=== PATIENT | male | born 1965 | race Caucasian/White ===

== ENCOUNTER → 2018-05-04 | Outpatient (CLI) | payer OTHER ==
[~2018-05-04] VITALS: Ht 175.3 cm; Wt 88.5 kg
[~2018-05-04] MED LIST: ADVIL,NUPRIN,M200 MG PO; ALEVE220 MG PO; AZELASTINE137 MCG/0. BOTH NARES; FLONASE16 G1 BOTH NARES; PRILOSEC20 MG PO; SINGULAIR10 MG PO; XYZAL5 MG PO; ZOCOR40 MG PO
== END | disposition home or self-care (01) ==
LOC: AMB 09:24
PROC: 0DJ08ZZ Inspection of Upper Intestinal Tract, Via Natural or Artificial Opening Endoscopic (ICD-10-PCS; principal; 2018-05-04)
DX: K44.9 Diaphragmatic hernia without obstruction or gangrene (principal); K21.9 Gastro-esophageal reflux disease without esophagitis; Z87.891 Personal history of nicotine dependence; J45.909 Unspecified asthma, uncomplicated
CPT/HCPCS: J2250